=== PATIENT | female | born 1965 | race Caucasian/White ===

== ENCOUNTER 2023-05-07 10:20 | Outpatient (OUT) | payer BC, SELFPAY ==
--- NOTE | 2023-05-07 10:34 | MM_ITS ---
Patient: PABLO CLAUDIO Exam Date: 05/07/2023 : 1965 Gender:F Ordering : DR SAE NGUYEN Admission #: [id number] Family : DR DELIA CAMARGO M.D. Order #: [id number] CLICK HERE TO VIEW EXAM RADIOLOGY REPORT PROCEDURE: MM TOMOSYNTHESIS SCREENING BI COMPARISON: MG MAMM SCREEN 3D SUNDEEP CAD, 05/01/2022. MG MAMM SCREEN 3D SUNDEEP CAD, 04/20/2021. MG MAMM SCREEN SUNDEEP W CAD, 04/13/2020. MG MAMM SUNDEEP SCRN W CAD DIG, 09/21/2013. INDICATIONS: Screening mammogram Z12.31 Calculator Name NCI Breast Cancer Risk Assessment Tool 5 Year Breast Cancer Risk 1.50% Lifetime Breast Cancer Risk 8.50% Personal Breast Cancer No Personal Ovarian Cancer No Treatments None Family Cancers Daughter with rhabomyosarcoma cancer at age 12; Daughter with melanoma cancer at age 22. LOCATION: [facility] BREAST COMPOSITION: Heterogeneously dense,which may obscure small masses. FINDINGS: DIAGNOSTIC CATEGORY 1--NEGATIVE. RIGHT BREAST: No significant suspicious finding. No significant change has occurred. LEFT BREAST: No significant suspicious finding. No significant change has occurred. RECOMMENDATIONS: ROUTINE MAMMOGRAM AND CLINICAL EVALUATION IN 12 MONTHS. PLEASE NOTE: A NORMAL MAMMOGRAM DOES NOT EXCLUDE THE POSSIBILITY OF BREAST CANCER. A CLINICALLY SUSPICIOUS PALPABLE LUMP SHOULD BE BIOPSIED. Dictated by: Hebert Soriano M.D. on 05/08/2023 at 13:09 Approved by: Hebert Soriano M.D. on 05/08/2023 at 13:13
== END 2023-05-07 10:21 | disposition home or self-care (01) ==
LOC: MAMMO 10:26
PROVIDERS: PCP Family Medicine; Visit Provider Obstetrics & Gynecology
DX: Z12.31 Encounter for screening mammogram for malignant neoplasm of breast (principal); Z80.8 Family history of malignant neoplasm of other organs or systems
CPT/HCPCS: 77063; 77067

== ENCOUNTER 2024-05-11 10:15 | Outpatient (OUT) | payer BC, SELFPAY ==
--- NOTE | 2024-05-11 10:17 | MM_ITS ---
Patient Name: PABLO CLAUDIO MR#: [id number] : 1965 Exam Date: 05/11/2024 Ordering Doctor: DR SAE NGUYEN RADIOLOGY REPORT PROCEDURE: MM TOMOSYNTHESIS SCREENING BI COMPARISON: MG MAMM SCREEN 3D SUNDEEP CAD, 05/01/2022. MM TOMOSYNTHESIS SCREENING BI, 05/07/2023. INDICATIONS: Screening Calculator Name NCI Breast Cancer Risk Assessment Tool 5 Year Breast Cancer Risk 1.50% Lifetime Breast Cancer Risk 8.30% Personal Breast Cancer No Personal Ovarian Cancer No Treatments None Family Cancers Daughter with rhabomyosarcoma cancer at age 12; Daughter with melanoma cancer at age 22. LOCATION: [facility] BREAST COMPOSITION: The breasts are heterogeneously dense,which may obscure small masses. FINDINGS: DIAGNOSTIC CATEGORY 2--BENIGN FINDING. NO CHANGE FROM COMPARISON. Scattered benign-appearing lymph nodes are present. Scattered benign-appearing calcifications are present. RIGHT BREAST: No significant suspicious finding. LEFT BREAST: No significant suspicious finding. RECOMMENDATIONS: ROUTINE MAMMOGRAM AND CLINICAL EVALUATION IN 12 MONTHS. PLEASE NOTE: A NORMAL MAMMOGRAM DOES NOT EXCLUDE THE POSSIBILITY OF BREAST CANCER. A CLINICALLY SUSPICIOUS PALPABLE LUMP SHOULD BE BIOPSIED. Dictated by: Willi Soler MD on 05/11/2024 at 11:57 Approved by: Willi Soler MD on 05/11/2024 at 11:58
== END 2024-05-11 10:16 | disposition home or self-care (01) ==
LOC: MAMMO 10:15
PROVIDERS: PCP Family Medicine; Visit Provider Obstetrics & Gynecology
DX: Z12.31 Encounter for screening mammogram for malignant neoplasm of breast (principal); Z80.8 Family history of malignant neoplasm of other organs or systems
CPT/HCPCS: 77063; 77067